=== PATIENT | female | born 1950 | race Caucasian/White ===

== ENCOUNTER → 2018-02-19 | Outpatient (CLI) | payer OTHER | END | disposition home or self-care (01) | LOC: MA 12:31 | DX: Z12.31 Encounter for screening mammogram for malignant neoplasm of breast (principal); M25.562 Pain in left knee | CPT/HCPCS: 77067 ==

== ENCOUNTER → 2018-03-06 | Outpatient (CLI) | payer OTHER | END | disposition home or self-care (01) | LOC: CT 08:52 | PROC: BQ28ZZZ Computerized Tomography (CT Scan) of Left Knee (ICD-10-PCS; principal; 2018-03-06) | DX: M25.562 Pain in left knee (principal) ==

== ENCOUNTER → 2018-04-23 | Outpatient (CLI) | payer OTHER | END | disposition home or self-care (01) | LOC: CA 14:26 → DS 14:26 | DX: Z01.818 Encounter for other preprocedural examination (principal) ==